=== PATIENT | female | born 1935 | race Caucasian/White ===

== ENCOUNTER 2018-09-27 07:06 | Inpatient (IN) | payer OTHER, MEDICAID ==
[~2018-09-27] VITALS: Ht 154.9 cm; Wt 73.5 kg
[2018-09-27 07:43] LABS: HEMATOCRIT. 44.4 % (36.0-48.0); HEMOGLOBIN. 15.3 g/dL (12.0-16.0); MEAN CORPUSCULAR HEMOGLOBIN 31.3 pg (28.0-32.0); MEAN CORPUSCULAR VOLUME 90.7 fL (81.0-99.0); MEAN PLATELET VOLUME 7.5 fl (7.4-10.4); PLATELET 255 x1000/uL (130-400); RED CELL DISTRIBUTION WIDTH 13.2 % (11.6-14.6)
[2018-09-27 07:48] LABS: CHLORIDE 100 mEq/L (98-107)
[2018-09-27] MEDS ORDERED: ONDANSETRON HCL 4MG/2ML INJ IV STA (07:54)
[2018-09-27] MEDS ORDERED: MORPHINE SULFATE 4 MG/ML CPJ (NOT FOR IM USE) IV STA (07:54)
[2018-09-27] MEDS ORDERED: SODIUM CHLORIDE 0.9% 250 ML IV ONE (08:00)
[2018-09-27] MEDS ORDERED: NITROGLYCERIN OINT 1GM/INCH UDPKT TD ONE (08:00)
[2018-09-27] MEDS ORDERED: ASPIRIN 81MG TABLET PO ONE (08:00)
[2018-09-27 08:18] LABS: PLATELET ESTIMATE NORMAL
[2018-09-27 10:25] VITALS: BP 121/66
[2018-09-27 11:04] VITALS: BP 121/66
[2018-09-27] MEDS ORDERED: DICL25TA2 PO (11:08)
[2018-09-27 12:00] VITALS: BP 112/61
[2018-09-27] MEDS ORDERED: REGADENOSON 0.4 MG/5 ML IV ONE (12:00)
[2018-09-27] MEDS ORDERED: ONDANSETRON HCL 4MG/2ML INJ IV PRN (12:30)
[2018-09-27] MEDS ORDERED: ACETAMINOPHEN 325MG TABLET PO PRN (12:30)
[2018-09-27] MEDS ORDERED: PNEUMOCOCCAL 23-VAL P-SAC VAC 0.5 ML IM ONE (12:30)
[2018-09-27] MEDS ORDERED: ENOXAPARIN 40MG/0.4ML SYR SUBCUT SCH (12:30)
[2018-09-27] MEDS ORDERED: PIPERACILLIN/TAZ 3.375G PREMIX 50 ML IV SCH (14:00)
[2018-09-27] MEDS: ASPIRIN 81MG EC TABLET PO SCH (15:15)
[2018-09-27] MEDS: IPRATROPIUM/ALBUTEROL 0.5-3(2.5)MG/3ML NEB HHN SCH ×2 (15:28→20:14)
[2018-09-27 16:00] VITALS: BP 133/75
[2018-09-27] MEDS: GUAIFENESIN 200MG/10ML SUGAR FREE UDC PO PRN ×2 (17:39→21:29)
[2018-09-27 20:00] VITALS: BP 149/67
[2018-09-28] VITALS: BP 126/66
[2018-09-28] MEDS: IPRATROPIUM/ALBUTEROL 0.5-3(2.5)MG/3ML NEB HHN SCH ×5 (01:37→19:49)
[2018-09-28 04:00] VITALS: BP 131/65
[2018-09-28 05:42] LABS: BASOPHILS % 0.1 % (0.0-2.0); HEMATOCRIT. 40.2 % (36.0-48.0); HEMOGLOBIN. 13.6 g/dL (12.0-16.0); MEAN CORPUSCULAR VOLUME 91.4 fL (81.0-99.0); MEAN PLATELET VOLUME 7.9 fl (7.4-10.4); MONOCYTES % 9.4 % (2.0-8.0); NEUTROPHILS % 80.5 % (40.0-76.0); PLATELET 224 x1000/uL (130-400); RED CELL DISTRIBUTION WIDTH 13.4 % (11.6-14.6)
[2018-09-28 07:09] LABS: CHLORIDE 104 mEq/L (98-107)
[2018-09-28 08:00] VITALS: BP 150/86
[2018-09-28] MEDS: ENOXAPARIN 40MG/0.4ML SYR SUBCUT SCH (08:11)
[2018-09-28] MEDS: ASPIRIN 81MG EC TABLET PO SCH (08:11)
[2018-09-28] MEDS: GUAIFENESIN 200MG/10ML SUGAR FREE UDC PO PRN ×2 (10:13→11:44)
[2018-09-28] MEDS ORDERED: PNEUMOCOCCAL 23-VAL P-SAC VAC 0.5 ML IM ONE (12:30)
[2018-09-28 13:00] VITALS: BP 128/69
[2018-09-28 20:00] VITALS: BP 141/91
[2018-09-29] VITALS: BP 116/75
[2018-09-29] MEDS: GUAIFENESIN 200MG/10ML SUGAR FREE UDC PO PRN ×2 (01:20→08:58)
[2018-09-29] MEDS: IPRATROPIUM/ALBUTEROL 0.5-3(2.5)MG/3ML NEB HHN SCH (01:25)
[2018-09-29 04:00] VITALS: BP 118/68
[2018-09-29 06:43] LABS: BASOPHILS % 0.1 % (0.0-2.0); HEMATOCRIT. 39.8 % (36.0-48.0); HEMOGLOBIN. 13.6 g/dL (12.0-16.0); LYMPHOCYTES % 13.8 % (20.0-50.0); MEAN CORPUSCULAR HEMOGLOBIN 31.2 pg (28.0-32.0); MEAN CORPUSCULAR VOLUME 91.1 fL (81.0-99.0); MEAN PLATELET VOLUME 8.2 fl (7.4-10.4); MONOCYTES % 9.8 % (2.0-8.0); NEUTROPHILS % 76.3 % (40.0-76.0); PLATELET 230 x1000/uL (130-400); RED BLOOD CELL COUNT 4.37 mill/uL (4.2-5.4); RED CELL DISTRIBUTION WIDTH 13.3 % (11.6-14.6)
[2018-09-29 07:01] LABS: CHLORIDE 104 mEq/L (98-107)
[2018-09-29 08:00] VITALS: BP 138/66
[2018-09-29] MEDS: ASPIRIN 81MG EC TABLET PO SCH (08:59)
[2018-09-29] MEDS: ENOXAPARIN 40MG/0.4ML SYR SUBCUT SCH (08:59)
== END 2018-09-29 10:51 | disposition left against medical advice (07) | DRG 871 ==
LOC: ER 07:06 → 7WST 08:37 → CANRESERV 08:54 → ENRESERV 08:54 → EDBEDREQ 09:02 → EDBEDREQTM 09:02
PROVIDERS: ADMIT Internal Medicine Geriatric Medicine; ATTEND Internal Medicine Geriatric Medicine
DX: A41.9 Sepsis, unspecified organism (principal); J18.9 Pneumonia, unspecified organism; E87.1 Hypo-osmolality and hyponatremia; E78.00 Pure hypercholesterolemia, unspecified; I11.9 Hypertensive heart disease without heart failure; J20.9 Acute bronchitis, unspecified; R73.03 Prediabetes; Z53.20 Procedure and treatment not carried out because of patient's decision for unspecified reasons; L25.9 Unspecified contact dermatitis, unspecified cause; T50.Z95A Adverse effect of other vaccines and biological substances, initial encounter; Z79.82 Long term (current) use of aspirin; Y92.89 Other specified places as the place of occurrence of the external cause
CPT/HCPCS: 36415; 71045; 80048; 82550; 82553; 83036; 83880; 84484; 87070; 87077; 87186; 87804; 90732; 93005; 93306; 94640; 97162; 99285; J1650; J2270; J2405; J2543; J7050; J7620